=== PATIENT | female | born 1975 | race Caucasian/White ===

== ENCOUNTER → 2022-07-26 12:00 | Outpatient (CLI) | payer OTHER, MEDICARE, SELFPAY ==
[2022-07-26 19:24] LABS: Basophils # 0.1 K/mm3 (0-0.2); Basophils % 1.3 % (0.1-2.0); Eosinophils # 1.1 K/mm3 (0.0-0.4); Eosinophils % 10.3 % (0.1-12.0); Hematocrit 44.1 % (37.0-47.0); Hemoglobin 13.8 g/dL (12.2-16.2); Lymphocytes # 2.1 K/mm3 (0.7-4.5); Lymphocytes % 20.3 % (10-50); Mean Corpuscular HGB Conc 31.3 g/dL (31.8-35.4); Mean Corpuscular Hemoglobin 29.3 pg (27.0-31.2); Mean Corpuscular Volume 93.7 fl (81-99); Mean Platelet Volume 9.1 fl (7.4-10.4); Monocytes # 0.5 K/mm3 (0.1-1.0); Monocytes % 4.3 % (1.7-9.3); Neutrophils # 6.6 K/mm3 (1.8-7.8); Neutrophils % 63.8 % (37.0-80.0); Platelet Count 493 K/mm3 (142-424); Red Cell Distribution Width 13.5 % (11.5-17.5); White Blood Count 10.4 K/mm3 (4.8-10.8)
[2022-07-26 20:22] LABS: Vitamin B12 355 pg/mL (239-931)
== END ==
PROVIDERS: PCP Family Medicine; Visit Provider Family Medicine
DX: D51.0 Vitamin B12 deficiency anemia due to intrinsic factor deficiency (principal)
CPT/HCPCS: 82607; 85025

== ENCOUNTER 2024-08-28 11:19 | Outpatient (CLI) | payer BC, MEDICARE, SELFPAY | END 2024-08-28 23:59 | disposition home or self-care (01) | LOC: LAB.DROPOF 08-29 09:50 | PROVIDERS: PCP Nurse Practitioner Family; Visit Provider Nurse Practitioner Family | DX: J02.9 Acute pharyngitis, unspecified (principal) | CPT/HCPCS: 87070 ==

== ENCOUNTER 2025-08-12 13:42 | Outpatient (CLI) | payer BC, MEDICARE, SELFPAY ==
--- OUTSIDE RECORDS SUMMARY | 2015-08-10 16:45 | XMS_ITS | Encounter Summary ---
Author Organization [place] [address] Care Team Providers Care Hand Scudder Name Role Phone Silvano Byers MD Primary Care Provider + [phone] Encounter Details Date Type Department Care Team (Latest Contact Info) Description 08/10/2015 4:45 PM EST Hospital Encounter [facility] [address] [place] [address] Left without seen Social History Tobacco Use Types Packs/Day Years Used Date Smoking Tobacco: Every Day Cigarettes Smokeless Tobacco: Never Alcohol Use Standard Drinks/Week Comments No 0 (1 standard drink = 0.6 oz pur e alcohol) Sexually Active Control Partners Comments Yes Surgical Male Hysterectomy Comments No Sex and Gender Information Value Date Recorded Sex Assigned at Not on file Legal Sex Female 12:26 AM EDT Gender Identity Not on file Sexual Orientation Not on file COVID-19 Exposure Response Date Recorded In the last month, have you been in contact with someone who was confirmed or suspected to have Coronavirus / COVID-19? No / Unsure 11/25/2021 2:19 PM EDT documented as of this encounter Plan of Treatment Upcoming Encounters Date Type Department Care Team (Late st Contact Info) Description 08/25/2025 7:00 AM EST Appointment [facility] [address] [place] [address] Carlos Boo MD [address] [place] [address] documented as of this encounter Visit Diagnoses Not on filedocumented in this encounter Care Teams Hand Scudder Relationship Specialty Start Date End Date Silvano Byers MD [address] [place] [address] PCP - General Family Medicine 06/05/15 documented as of this encounter
--- OUTSIDE RECORDS SUMMARY | 2025-08-12 13:49 | XMS_ITS ---
Author Organization Unknown TREATMENT PLAN [facility] Start Date Provider Encounter for Check-up [id number] [facility]
--- OUTSIDE RECORDS SUMMARY | 2025-08-12 13:49 | XMS_ITS | Clinical Summary ---
Author Organization [facility] Address [address] [place] [address] Care Team Providers Care Director Of Veterans Affairs Name Role Phone Silvano Byers MD Primary Care Provider [phone] Source Comments This information has been disclosed to you from confidential records protectedfrom disclosure by state law. You shall make no further disclosure of thisinformation without the specific, written, and informed release of theindividual to whom it pertains, or as otherwise permitted by law. A generalauthorization for the release of medical or other information is not sufficientfor the purposes of therelease of HIV test results or diagnoses. [id number] Allergies Active Allergy Reactions Criticality Noted Date Comments Diphenhydramine Hcl Hives High 08/11/2011 Metoclopramide Other (See Comments) High Hyperactivity Guaifenesin Hives High Medications traZODone (DESYREL) 100 MG tablet Take 100 mg by mouth nightly. 1-2 tabs 08/28/2007 Active pramipexole (MIRAPEX) 0.25 MG tablet Take 0.25 mg by mouth nightly. 08/28/2007 Active pantoprazole (PROTONIX) 40 MG tablet Take 40 mg by mouth. 08/28/2007 Active pregabalin (LYRICA) 100 MG capsule Take 100 mg by mouth 3 (three) times daily. 08/28/2007 Active amphetamine-dex troamphetamine (ADDERALL XR) 20 MG 24 hr capsule Take 20 mg by mouth every morning. 08/28/2007 Active traMADol (ULTRAM) 50 mg tabletIndicatio ns:Pain Take 50 mg by mouth every 8 (eight) hours as needed. Duration = 30 days 08/28/2007 Active celecoxib (CELEBREX) 200 MG capsule Take 200 mg by mouth 2 (two) times daily. As directed 08/28/2007 Active tiZANidine (ZANAFLEX) 4 MG tablet Take 4 mg by mouth nightly. 08/28/2007 Active cyanocobalamin, vitamin B-12, (VITAMIN B-12 INJ) Inject as directed every 30 days. Active buprenorphine (BUTRANS) 15 mcg/hour PTWK Place 1 patch onto the skin every 7 days. Active traZODone (DESYREL) 100 MG tablet Take 100 mg by mouth at bedtime. Active baclofen (LIORESAL) 10 MG tablet Take 10 mg by mouth 3 times a day. Active ibuprofen (MOTRIN) 600 MG tablet Take 1 tablet (600 mg total) by mouth every 6 hours as needed for Pain. 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 Pain in joint, shoulder region 08/28/2007 Myalgia and myositis 08/28/2007 Overview (06/09/2015): ICD-10 Transition Personal history of other di sorders of nervous system and sense organs 08/28/2007 Family History Medical History Relation Comments Cancer Father mouth Relation Status Comments Father Social History Tobacco Use Types Packs/Day Years Used Date Smoking Tobacco: Every Day Cigarettes 1.5 24 Smokeless Tobacco: Never Tobacco Cessation:Ready to Q uit: No; Counseling Given: No Comments:08/28/2007 packs/year: 8 Alcohol Use Standard Drinks/Week Comments Yes 0 (1 standard drink = 0.6 oz pur e alcohol) occasionally 08/28/2007 PHQ-2 Answer Date Recorded PHQ-2 Total Score 0 02/27/2024 Yearly Questionnaire Answer Date Record ed Do you need any assistance w ith obtaining housing, meals, medication, transportation or medical equipment? No 02/26 Assistance needed for: Not on file Yearly Questionnaire Answer Date Record ed Do you need any assistance w ith obtaining housing, meals, medication, transportation or medical equipment? No 02/26 Assistance needed for: Not on file Yearly Questionnaire Answer Date Record ed Do you need any assistance w ith obtaining housing, meals, medication, transportation or medical equipment? No 02/26 Assistance needed for: Not on file 4 Comments No Sex and Gender Information Value Date Recorded Sex Assigned at Not on file Legal Sex Female 10:10 PM EST Gender Identity Not on file Sexual Orientation Not on file Last Filed Vital Signs Vital Sign Reading Time Taken Comments Blood Pressure 134/75 07/27/2021 2:59 PM EST Pulse 100 07/27/2021 2:59 PM EST Temperature 36.8 C (98.3 F) 07/27/2021 2:59 PM EST Respiratory Rate 16 07/27/2021 2:59 PM EST Oxygen Saturation 100% 07/27/2021 2:59 PM EST Inhaled Oxygen Concentration 100% 07/27/2021 2 :59 PM EST Weight 68.9 kg (152 lb) 08/10/2021 9:59 AM EST Height 166.4 cm (5' 5.5 ) 08/10/2021 9:59 AM EST Body Mass Index 24.91 08/10/2021 9:59 AM EST Plan of Treatment Health Maintenance Due Date Last Done Comments Abnormal Colonoscopy Follow Up 1974 Hepatitis C Screening (MyChart) 1974 Alcohol Misuse Screening 1992 HIV Screening 1992 Immunization: Hepatitis B (1 of 3 - 19+ 3-dose series) 1993 Immunization: Pneumococcal (1 of 2 - PCV) 1993 Mammogram (MyChart) 2014 Cologuard (FIT-DNA) 2019 Colonoscopy 2019 Colorectal Cancer Screening (MyChart) 2019 Stool Testing (gFOBT) 2019 Immunization: DTaP/Tdap/Td ( 2 - Td or Tdap) 10/30/2021 10/30/2011 Immunization: Zoster (1 of 2) 2024 Lung Cancer Screening 2024 Depression Screening 02/26/2025 02/27/2024, 05/23/20 21 Immunization: COVID-19 ( season) 2025 Immunization: Influenza (MyChart) (#1) 2025 Insurance MEDICARE A AND B Member Subscriber Plan / Payer ( fective 2012-Present) Name:Aneta Meléndez Relation to Subscriber:Self Name:Aneta Meléndez Payer ID:[id number] Group ID:Not on file Type:Medicare Address: [facility] [id number] [facility] Address: [facility] [address] [place] [address] Care Teams Director Of Veterans Affairs Relationship Specialty Start Date End Date Silvano Byers MD [address] [place] [address] PCP - General Family Medicine 02/26/24
--- OUTSIDE RECORDS SUMMARY | 2025-08-12 13:49 | XMS_ITS | Clinical Summary ---
Author Organization [facility] Address [address] [place] [address] Phone Care Team Providers Care Collision Repair Technician Name Role Phone Silvano Byers MD Primary Care Provider + [phone] Allergies Active Allergy Reactions Criticality Noted Date Comments Diphenhydramine Hcl 08/11/2011 Metoclopramide 08/11/2011 Guaifenesin 08/11/2011 Medications TRAZODONE HCL (TRAZODONE ORAL) Take by mouth. Activ e ADDERALL XR 30 mg Oral Capsule, Sust. Release 24 hrIndications:n arcolepsy syndrome Take 1 Cap by mouth 2 times daily. Indications: NARCOLEPSY SYNDROME 60 Cap 0 4 Active estradioL (ESTRACE) 0.01 % (0.1 mg/gram) Vagl CreamIndication s:Menopause 1/2 gram twice weekly to the vulva and vagina 1 Each 1 5 Active Active Problems Problem Noted Date Diagnosed Date Narcolepsy 01/15/2013 B12 deficiency 01/15/2013 Immunizations Immunization Administration Dates Next Due Tdap 10/30/2011 Surgical History Surgery Date Site/Laterality Comments APPENDECTOMY ORTHOPEDIC SURGERY multiple shoulder, neck and back sx HYSTERECTOMY HERNIA REPAIR Medical History Medical History Date Comments Chronic pain GERD (gastroesophageal reflux disease) Narcolepsy Social History Tobacco Use Types Packs/Day Years Used Date Smoking Tobacco: Every Day Cigarettes Smokeless Tobacco: Never Tobacco Cessation:Ready to Q uit: Not Asked; Counseling Given: Not Answered Alcohol Use Standard Drinks/Week Comments No 0 (1 standard drink = 0.6 oz pur e alcohol) Sexually Active Control Partners Comments Yes Surgical Male Hysterectomy Comments No Sex and Gender Information Value Date Recorded Sex Assigned at Not on file Legal Sex Female 12:26 AM EDT Gender Identity Not on file Sexual Orientation Not on file Obstetrics History Para Term AB IAB SAB Ectopic Multiple Livin g Live Births 1 0 0 0 1 1 0 0 0 0 0 Date Outcome GA Total Labor Labor/2nd/3rd Weight Sex Type Anes PTL [place] A1 A5 Name Clin IAB Last Filed Vital Signs Vital Sign Reading Time Taken Comments Blood Pressure 148/90 09/25/2024 8:09 AM EST Pulse 98 08/25/2024 1:43 PM EST Temperature 37.2 C (99 F) 08/25/2024 1:43 PM EST Respiratory Rate 18 08/25/2024 1:43 PM EST Oxygen Saturation 98% 08/25/2024 1:43 PM EST Inhaled Oxygen Concentration - - Weight 75.8 kg (167 lb) 09/25/2024 8:09 AM EST Height 166.4 cm (5' 5.5 ) 09/25/2024 8:09 AM EST Body Mass Index 27.37 09/25/2024 8:09 AM EST Plan of Treatment Upcoming Encounters Date Type Department Care Team (Late st Contact Info) Description 08/25/2025 7:00 AM EST Appointment [address] [place] [address] Carlos Boo MD [address] [place] [address] Health Maintenance Due Date Last Done Comments Annual Wellness Exam 1977 Hepatitis B Vaccine (1 of 3 - 19+ 3-dose series) 1993 Pneumococcal Vaccine 50+ (1 of 2 - PCV) 1993 Breast Cancer Screening 2014 Cologuard 2019 Colon Cancer Screening 2019 Colonoscopy 2019 FIT 2019 Sigmoidoscopy 2019 Virtual Colonography 2019 DTaP/TDaP/Td (2 - Td or Tdap) 10/30/2021 10/30/2011 Zoster (1 of 2) 2024 COVID-19 Vaccine (1 - 2024-2 6 season) 2025 Influenza Vaccine (#1) 2025 Meningococcal B Vaccine Aged Out No l onger eligible based on patient's age to complete this topic Insurance [place] [address] [facility] PPO Care Teams Collision Repair Technician Relationship Specialty Start Date End Date Silvano Byers MD [address] [place] [address] PCP - General Family Medicine 06/05/15
--- NOTE | 2025-08-12 14:00 | MM_ITS ---
PROCEDURE INFORMATION: Exam: MG Bilateral Screening 3D Mammography Exam date and time: 08/12/2025 1:45 PM Age: 49 years old Clinical indication: Screening mammogram TECHNIQUE: Imaging protocol: Bilateral Screening tomosynthesis and 2D mammography including computer-aided detection (CAD) when performed. COMPARISON: No relevant prior studies available. FINDINGS: MAMMOGRAPHY: Breast composition: There are scattered areas of fibroglandular density. Mass: None. Architectural distortion: No new or suspicious architectural distortion. Calcifications: No new or suspicious calcifications are present Asymmetric density: No new or suspicious asymmetric density is present Skin thickening: None. Axillary adenopathy: None. IMPRESSION: No mammographic evidence of malignancy. Recommend annual screening mammography unless otherwise clinically indicated. ASSESSMENT: BI-RADS category 1: Negative.
--- NOTE | 2025-08-12 14:30 | CT_ITS ---
FINAL REPORT TECHNIQUE: Axial CT images of the chest were obtained without contrast. Low-dose protocol was utilized. This study was performed with techniques to keep radiation doses as low as reasonably achievable (ALARA). Individualized dose reduction techniques using automated exposure control or adjustment of mA and/or kV according to the patient's size were employed. CLINICAL HISTORY: lung cancer screening current smoker 2 ppd x 29 years COMPARISON: None FINDINGS: CT CHEST WITHOUT, LOW DOSE SCREENING CT Di Vol: 2.90 mGy DLP: 105.77 mGy*cm There is no axillary, mediastinal, or hilar adenopathy. The heart size is normal. There is no pleural or pericardial effusion. The lung windows show no suspicious mass or nodule. There are mild changes of centrilobular emphysema. Limited images of the upper abdomen demonstrate no acute findings. IMPRESSION: No suspicious mass or nodule. LR Category 1: 12 month follow-up low-dose chest CT is recommended per Fleischner criteria. Reviewed, Interpreted and Dictated by Roger Wills MD Transcribed by Elda Delatorre Authenticated and . [facility]
== END 2025-08-12 23:59 | disposition home or self-care (01) ==
LOC: RAD 13:43
PROVIDERS: PCP Nurse Practitioner Family; Visit Provider Nurse Practitioner Family
DX: Z12.31 Encounter for screening mammogram for malignant neoplasm of breast (principal); R92.323 Mammographic fibroglandular density, bilateral breasts; Z12.2 Encounter for screening for malignant neoplasm of respiratory organs; F17.210 Nicotine dependence, cigarettes, uncomplicated; J43.2 Centrilobular emphysema
CPT/HCPCS: 71271; 77063; 77067